=== PATIENT | female | born 1970 | race Caucasian/White ===

== ENCOUNTER 2025-01-30 23:29 | Inpatient (IN) | payer OTHER ==
[~2025-01-30] VITALS: Ht 154.9 cm; Wt 79.0 kg
[2025-01-31] VITALS (17 sets, daily range): BP systolic 125–159; BP diastolic 61–75; PULSE 81–116; RESP 16–20; TEMP 97.8–101; O2SAT 97–100
[2025-01-31 00:06] LABS: MEAN PLATELET VOLUME 7.3 FL (7.4-10.4); RED CELL DISTRIBUTION WIDTH 13.4 % (11.5-14.5)
--- NOTE | 2025-01-31 00:23 | Physician Documentation ---
History of Present Illness ~ Chief Complaint: Chest Pain Stated Complaint: CHEST PAINS M ALS Time Seen by MD: 00:13 HPI Patient presents to the emergency room for evaluation of left-sided chest pain, generalized malaise and vomiting. She endorses that three days ago she was feeling fine but did lay down for a small nap and ended up sleeping for 4 hours. Yesterday she began to feel significant fatigue and today she started vomiting. Subjective fever and chills. No sick contacts. She states she is just getting over COVID. Medication Reconciliation Allergies: Coded Allergies: Penicillins (Verified Allergy, Unknown, 01/31/25) Hives Review of Systems ROS All review of systems negative except as per HPI Physical Exam Vital Signs: Temperature: 100.4, Source: Oral, Heart Rate: 116, Respiratory Rate: 16, BP: 129/77, Pulse Oximetry: 100, Weight: 79.000 Oxygen Flow Rate: 3.0 Physical Exam General: Patient is awake, alert, oriented x4 in no acute distress Head: Normocephalic and atraumatic. Eyes: Conjunctival normal. EOMI. PERRL. ENT: Mucous membranes moist. Neck: Supple, trachea is midline. Chest: Clear to auscultation bilaterally without rales, rhonchi, or wheezes. There is no accessory muscle use or retractions. Cardiac: RRR without murmurs, gallops, or rubs. Abd: Soft, nondistended, nontender, with normoactive bowel sounds. No guarding, rebound, or rigidity. Progress Results/Orders Results/Orders Orders - JOSHUA SMITH MD Monitor (01/30/25 23:37) Saline Lock (01/30/25 23:37) Oxygen (01/30/25 23:37) Electrocardiogram (01/30/25 23:37) Chest,Single View (01/31/25 00:00) Covid19 Binax Poc Result Entry (01/31/25 00:20) Cult Urine + [address] (01/31/25 03:10) Ceftriaxone/R4y-Bliwcwij 1gm (Rocephin 1 (01/31/25 03:15) Page Hospitalist (01/31/25 03:14) Fill Out Med Reconciliation (01/31/25 03:14) Completed Orders - JOSHUA SMITH MD Cbc/Diff (01/30/25 23:37) BMP (01/30/25 23:37) PBNP (01/30/25 23:37) Hs Troponin I W Calculations (01/30/25 23:37) Hs Troponin I W Calculations (01/31/25 01:37) Hs Troponin I W Calculations (01/31/25 02:37) Chest,Single View (01/31/25 00:00) Normal Saline 1000ml (0.9% Sodium Chlori (01/31/25 00:25) Ketorolac Trometh 15mg/Ml Vial (Toradol (01/31/25 00:25) Ua W/Microscopic, Cult If Ind (01/31/25 02:40) Medications Received in ER Medications (Trade) Dose Ordered Sig/Ying Route PRN Reason Start Time Stop Time Status Last Admin Dose Admin Sodium Chloride 1,000 ml @ 1,000 mls/hr ONCE ONCE IV 01/31/25 00:25 01/31/25 01:24 DC 01/31/25 00:39 1,000 MLS/HR (Toradol injection) 15 mg ONCE ONCE IV 01/31/25 00:25 01/31/25 00:26 DC 01/31/25 00:39 15 MG Vital Signs 01/31/25 01/31/25 01/31/25 01/31/25 00:16 00:39 01:30 02:08 Temp 100.0 Pulse 116 92 Resp 16 16 16 16 B/P (MAP) 129/77 132/67 (88) Pulse Ox 100 98 O2 Flow Rate 3.0 2.0 01/31/25 01/31/25 01/31/25 02:09 02:14 03:01 Pulse 94 88 Resp 16 16 16 B/P (MAP) 130/65 (86) 134/66 (88) Pulse Ox 98 95 O2 Flow Rate 0 0 Laboratory Tests Test 01/30/25 23:50 01/31/25 01:43 01/31/25 02:40 01/31/25 02:41 White Blood Count 8.0 Red Blood Count 3.49 L Hemoglobin 10.6 L Hematocrit 29.9 L Mean Corpuscular Volume 85.6 Mean Corpuscular Hemoglobin 30.2 Mean Corpuscular Hemoglobin Concent 35.3 Red Cell Distribution Width 13.4 Platelet Count 237 Mean Platelet Volume 7.3 L Neutrophils (%) (Auto) 76.8 H Lymphocytes (%) (Auto) 14.3 L Monocytes (%) (Auto) 7.5 Eosinophils (%) (Auto) 0.9 Basophils (%) (Auto) 0.5 Neutrophils # (Auto) 6.2 Lymphocytes # (Auto) 1.1 Monocytes # (Auto) 0.6 Eosinophils # (Auto) 0.1 Basophils # (Auto) 0.0 CBC Comment Sodium Level 134 L Potassium Level 4.1 Chloride Level 99 Carbon Dioxide Level 23.7 L Anion Gap 11 Blood Urea Nitrogen 14 Creatinine 0.74 Estimated GFR/1.73 m2 82 BUN/Creatinine Ratio 18.9 Glucose Level 291 H Calcium Level 8.6 Troponin I High Sensitivity 10 32 Pro-B-Type Natriuretic Peptide 107 Albumin 3.0 L Chemistry Comments Troponin I High Sens Percent Delta 220 Troponin I Hi Sens Absolute Change 22 Urine Specimen Description Cln catch midstream Urine Color Yellow Urine Clarity Slightly cloudy Urine pH 5.5 Urine Specific [place] 1.015 Urine Protein Negative Urine Glucose (UA) 250 H Urine Ketones Negative Urine Occult Blood Small Urine Nitrite Negative Urine Bilirubin Negative Urine Urobilinogen 0.2 Urine Leukocyte Esterase Moderate H Urine RBC 0-2 Urine WBC 30-50 H Urine WBC Clumps Few Urine Squamous Epithelial Cells Moderate Urine Transitional Epithelial Cells Few Urine Bacteria 3+ Urine Mucus Few Urine Culture Indicated Indicated Volume Urine Centrifuged 10 ml Urine Comment SARS-CoV-2 Antigen (Rapid) Negative Test 01/31/25 02:47 Troponin I High Sensitivity 45 Troponin I High Sens Percent Delta 40 Troponin I Hi Sens Absolute Change 13 EKG/XRAY/CT/US/VASC/MRI EKG : Additional Comment EKG interpreted by myself shows time of 0 0 two, rate 113, sinus tachycardia, normal axis, no ST changes Medical Decision Making Findings Patient presents to the emergency room with chest pain and generalized symptoms. Differentials include but are not limited to ACS viral syndrome urinary tract infection sepsis therefore emergent labs ordered. Labs reassuring for no elevation of white blood cell count. Patient does have a urinary tract infection and Rocephin has been administered. Although patient does not have dangerously high troponins it does seem to be trending upwards and we will admit for further investigation in the light of patient's chest pain. Departure Admitted to Inpatient Unit: yes, to hospitalist Impression: Primary Impression: Chest pain Additional Impression: Vomiting Referrals: NO PRIMARY CARE PROVIDER (PCP) Signature Scribe Signature: No scribe Attestation: The note accurately reflects work and decisions made by me.Joshua Smith MD 01/31/25 03:19 JOSHUA SMITH MD Jan 31, 2025 00:23
[2025-01-31] MEDS: ketorolac trometh 15mg/ml vial 15 MG/ML ML IV ONE (00:39)
[2025-01-31] MEDS: normal saline 1000ml 1,000 ML IV ONE (00:39)
[2025-01-31 00:47] LABS: CREATININE 0.74 MG/DL (0.40-0.90); PRO BRAIN NATRIURETIC PEPTIDE 107 PG/ML (0-125); TOTAL CARBON DIOXIDE 23.7 MMOL/L (24-32); eCRCL 66 ML/MIN; eGFR 82 ML/MIN
--- NOTE | 2025-01-31 00:50 | RADIOLOGY REPORT ---
CHEST RADIOGRAPH Indication: CP Technique: Single frontal view of the chest was obtained COMPARISON: None FINDINGS: Lines and Tubes: None Lungs: Clear Pleura: No effusion. No pneumothorax. Cardiomediastinal contours: Unremarkable Bones: Unremarkable IMPRESSION: 1. No acute disease.
[2025-01-31 03:03] LABS: LEUKOCYTE ESTERASE ,URINE MODERATE (Neg); NITRITES, URINE NEGATIVE (Neg); OCCULT BLOOD,URINE SMALL (Neg)
[2025-01-31 03:04] LABS: UA COLLECTION TYPE CLN CATCH MIDSTREAM
[2025-01-31 03:09] LABS: MUCUS STRANDS FEW /LPF (Neg); SQUAMOUS EPITHELIAL CELL,UR MODERATE /LPF (FEW); WBC CLUMPS,URINE FEW /HPF (NEGATIVE)
[2025-01-31] MEDS: CefTRIAXone/D5W-Rocephin 1gm 50 ML IV ONE (03:21)
[2025-01-31] MEDS ORDERED: magnesium hydroxide 30ml (MOM) UD suspension PO PRN (04:10)
[2025-01-31] MEDS ORDERED: ondansetron/PF 4mg/2ml inj IV PRN (04:10)
[2025-01-31] MEDS ORDERED: HYDROcodone/acetaminophen 10/325mg tab PO PRN (04:10)
[2025-01-31] MEDS ORDERED: mag hydrox/Alum hydrox/simeth 30ml oral suspension PO PRN (04:10)
[2025-01-31] MEDS ORDERED: magnesium sulf-water 2g/50mL 50 ML IV PRN (04:10)
[2025-01-31] MEDS ORDERED: potassium Cl 40MEQ/1/2NS 520ml 520 ML IV PRN (04:10)
[2025-01-31] MEDS ORDERED: HYDROcodone/acetaminophen 5mg/325mg tablet PO PRN (04:10)
[2025-01-31] MEDS ORDERED: magnesium Cl slow-release 64mg tablet PO PRN (04:10)
[2025-01-31] MEDS ORDERED: magnesium sulf-water 4G/100mL 100 ML IV PRN (04:10)
[2025-01-31] MEDS ORDERED: potassium Cl 20 mEq SR tablet PO PRN ×2 (04:10)
[2025-01-31] MEDS ORDERED: LANTUS SQ (04:12)
[2025-01-31] MEDS ORDERED: DEXTROSE 15 GM of carb/4 tabs (each vial/BOTTLE has 4 tablets) PO PRN ×2 (04:15)
[2025-01-31] MEDS ORDERED: dextrose 50%-water 50ml dispensing syringe IV PRN ×2 (04:15)
[2025-01-31] MEDS ORDERED: glucagon, human recombinant 1mg kit SUBCUT PRN (04:15)
[2025-01-31] MEDS ORDERED: metoprolol tartrate 1mg/ml inj IV PRN (04:15)
[2025-01-31] MEDS ORDERED: aminophylline 250mg/10ml inj. IV PRN (04:15)
[2025-01-31] MEDS: PERFLUTREN PROTEIN-A MICROSPHR (Optison) 0.22 MG/ML 3ML VIAL IV ONE (04:25)
--- NOTE | 2025-01-31 04:51 | HISTORY AND PHYSICAL-Residence ---
History & Physical Providers to CC Resident Creating Document: PRASAD GARCIA RES ~ History of Present Illness Reason for Admit\Complaint: Chest pain History of Present Illness This is a 54-year-old female patient with a past medical history of type 2 diabetes mellitus who presented in the ER for chest pain. She was sleeping and woke up due to sudden onset sharp left side chest pain 6/10 in intensity without radiation, associated with nausea and dizziness. No alleviating or worsening factors reported, no improvement with nitroglycerin. She denies shortness or breath or productive cough but complained of chills and fever sensation. She was diagnosed with coccidioidomycosis in August 2024 when she was treated with amphotericin followed by maintenance with fluconazole daily. Patient has been followed by a crabbing machine operator and Infectious Disease, she states complete remission based on previous chest CT. Patient feels bloated but denies vomiting, diarrhea or epigastric pain. No urinary symptoms reported. Allergies: Coded Allergies: Penicillins (Verified Allergy, Unknown, 01/31/25) Hives Home Medications Home Medications Active Reported Lantus* (Insulin Glargine) 100 Unit/1 Ml Vial 30 Units SQ DAILY Past Medical History Past Medical History Type 2 diabetes mellitus on insulin Coccidioidomycosis in August 2024 Past Surgical History Surgical History Comment Left Achilles tendon repair Tonsillectomy Right shoulder surgery Past Social History Smoking: Non-Smoker Alcohol Use: Sober Drug Use: None Lives with: Alone Lives In: Home Occupation: employed ROS Constitutional: Reports: chills, fever, malaise, weakness Eyes: Denies: no symptoms reported, see HPI, pain, discharge, blurred vision, double vision, itching, photophobia, redness, tearing, other ENT: Denies: no symptoms reported, see HPI, ear pain, ear bleeding, ear discharge, hearing loss, ear ringing, nose pain, nose bleeding, nose congestion, nose discharge, throat pain, throat swelling, voice change, mouth pain, mouth bleeding, mouth swelling, other Respiratory: Reports: cough Cardiovascular: Reports: chest pain, lightheadedness Gastrointestinal: Reports: nausea Genitourinary: Denies: no symptoms reported, see HPI, burning, discharge, dysuria, frequency, flank pain, hematuria, incontinence, pain, decreased urine output, urgency, other Female Genitalia: Denies: no reported symptoms, see HPI, vaginal discharge, vaginal pain, pelvic pain, abnormal bleeding, dyspareunia, , other Neurological: Denies: no symptoms reported, see HPI, speech problem, headache, dizziness, fainting, tingling, left sided numbness, right sided numbness, left sided weakness, right sided weakness, problems walking, unable to move lower ext, unable to move upper ext, petit mal seizures, tonic-clonic seizures, cognitive dysfunction, other Musculoskeletal: Denies: no symptoms reported, see HPI, pain, swelling, back pain, gout, joint pain, joint swelling, muscle pain, muscle swelling, muscle stiffness, neck pain, other Integumentary: Denies: no symptoms reported, see HPI, rash, itching, lesions, lumps, bruise(s), wound(s), laceration(s), dryness, change in color, other Allergic/Immunologic: Denies: no symptoms reported, see HPI, hives, itching, frequent infections, difficulty healing, other Hematologic/Lymphatic: Denies: no symptoms reported, see HPI, anemia, blood clots, easy bleeding, easy bruising, swollen glands, other Endocrine: Denies: no symptoms reported, see HPI, excessive sweating, flushing, intolerance to cold, intolerance to heat, increased hunger, increased thrist, increased urine, unexplained weight gain, unexplained weight loss, other Psychiatric: Denies: no symptoms reported, see HPI, depression, anxiety, sleeplessness, hopeless, suicidal, hallucinations, other Exam Vitals: Vital Signs Date Time Temp Pulse Resp B/P (MAP) Pulse Ox O2 Delivery O2 Flow Rate FiO2 01/31/25 03:55 92 16 123/60 (81) 97 0 01/31/25 00:16 100.0 General: General: Awake and Alert, no acute distress. HEENT: Conjunctiva pink, Sclera clear, Mucus Membranes moist. Neck: Supple without masses and tenderness. Resp: Unlabored. Lungs clear to auscultation bilaterally. Heart: Regular Rate and rhythm, normal S1 and S2 without murmur, rub or gallop. Abdomen: Soft and non tender no organomegaly Extremities: No cyanosis,clubbing or edema. Skin: Warm and Dry. Diagnostic Data Last Recorded Lab Results: 01/30/25 2350 01/30/25 235 Advance Care Planning Advanced Care plannin - 30 Minutes (I have discussed advanced care directives. Patient requests full code status.) Additional Plan Assessment 54-year-old female patient admitted for chest pain evaluation and management. Chest pain, rule out ACS Heart score 4 points Sudden onset sharp chest pain at rest, without precipitating factors No shortness for breath but pain with deep inspiration Recent coccidioidomycosis infection but reports complete remission Troponins 10 - 32 - 45 BNP 107 WBC 8.0, procalcitonin 0.17, CRP 5.52 EKG: Heart rate 113 bpm, sinus rhythm, no ischemic changes noted Chest x-ray: No acute disease. Plan Ordered Lexiscan given female patient and diabetic which can explain atypical symptoms Ordered D-dimer, lipid panel and 4th troponin given upward trending Ordered echocardiogram Type 2 diabetes mellitus, insulin dependent Ordered A1c Continue glargine 30 units at bedtime Hyper/hypoglycemia protocol placed Uncomplicated UTI Positive leukocyte esterase Urine WBC 30-50 Started on ceftriaxone 1 g daily Mild hyponatremia Mild hypoalbuminemia Na 134, Albumin 3.0 Not clinically significant, current euvolemic Patient received 1000 mL of normal saline in the ER Recent coccidioidomycosis infection Patient had fever, weakness and cough in August 2024 Received amphotericin induction followed by daily fluconazole Reports to be in complete remission Ordered liver panel given chronic fluconazole use Code Status: Full code DVT prophylaxis: Enoxaparin Analgesia/sedation: Morphine/[place] Line/tube: PIV GI prophylaxis: Pantoprazole Nutrition: Regular diet Prognosis: Guarded Physical therapy: Consulted Disposition: Admit to PCU/telemetry. Addendum: Shortness of breath likely secondary to acute PE versus ACS CTA chest ordered to rule out PE Troponins up trending, Started on heparin drip. Contacted Dr. Duncan for cardiology recommendations. Recommendations appreciated #1 Neuro: - Monitor for delirium #2 CV: Suspected nonST-elevation myocardial infarction (NSTEMI). - ASA - Anticoagulation therapy - Statin for cholesterol management - Consult Cardiology for further management recommendations and possible intervention. #3 Pulm: - Encourage incentive spirometry (IS) use to prevent atelectasis. - Aim to keep O2 saturation >92% with supplemental oxygen as needed. #4 GI: - Advance diet as tolerated when cleared by primary care #5 Renal: - Monitor renal function for acute kidney injury - Replete electrolytes #6 ID: Urinary tract infection (UTI). - ceftiraxone #7 Endo: Type 2 Diabetes Mellitus. - Initiate insulin sliding scale to maintain serum glucose between 150-180 mg/dL. - Introduce long-acting insulin if persistent hyperglycemia or as per hospital protocol. #8 Heme/Onc: - Monitor for bleeding, especially in the context of antiplatelet and anticoagulant therapy for NSTEMI. - Prevent thromboembolic events; keep hemoglobin >7 g/dL and platelets >10,000/L. #9 PPx: - Provide chemical deep vein thrombosis (DVT) prophylaxis unless contraindicated. I saw this patient and completed a full visual exam via audio-visual HIPAA compliant technology. Date of Service: Jan 31, 2025 Billing Provider: MARCEL MUHAMMAD MD, LUCAS, RES Jan 31, 2025 04:51 FLORENCE YEPEZ, RES Jan 31, 2025 14:31 MARCEL MUHAMMAD MD Jan 31, 2025 14:45
[2025-01-31] MEDS ORDERED: FLUC100T25 PO (05:17)
[2025-01-31] MEDS ORDERED: INSU100C10 SQ (05:19)
--- NOTE | 2025-01-31 06:02 | ELECTROCARDIOGRAPH REPORT ---
[facility] Test Date: 2025-01-31 Test Time: 00:02:52 Pat Name: JESSICA NICHOLS Department: [facility]-ER Patient ID: [facility]-[id number] Room: [place] [id number] C Gender: F [employer]: : 1970 Requested By: WU CANTOR Order Number: [id number] Reading MD: Dr. Kelby De Leon Measurements Intervals [place] Rate: 113 P: 52 TX: 152 QRS: 21 QRSD: 80 T: 34 QT: 330 QTc: 453 Interpretive Statements Sinus tachycardia Probable left atrial enlargement Low voltage, precordial leads Baseline wander in lead(s) II,III,aVF,V1,V2,V3,V4,V5,V6 Electronically Signed On 02-08-2025 21:51:[address] Kelby De Leon Please click the below link to view image of tracing.
[2025-01-31] MEDS: INSULIN LISPRO 100 UNIT/ML INSULN.PEN MULTI-DOSE SQ SCH (07:00)
[2025-01-31 07:12] LABS: CHOL/HDL RATIO 6.0 (0.00-4.99); LDL CHOLESTEROL 109 MG/DL (50-100)
[2025-01-31] MEDS: docusate sod 100mg capsule PO SCH (08:00)
[2025-01-31] MEDS: K and/or MAG REPLACEMENT MC SCH (08:00)
[2025-01-31] MEDS: enoxaparin 40mg/0.4ml syringe SUBCUT SCH (08:03)
[2025-01-31] MEDS: regadenoson 0.4mg/5ml syringe IV PRN (09:16)
--- NOTE | 2025-01-31 10:50 | RADIOLOGY REPORT ---
HISTORY: Chest pain TECHNIQUE: At peak stress, 33.7 mCi of sestamibi was administered intravenously. Soon thereafter, gated SPECT imaging of the heart was performed with the patient in the supine position. At rest, 8.4 mCi of sestamibi was administered intravenously. Soon thereafter, gated SPECT imaging of the heart was performed with the patient in the supine position. FINDINGS: The left ventricular myocardium demonstrates uniform radiotracer distribution, without perfusion defect. The left ventricular cavity is normal in size. Calculated LVEF is 41 %. No segmental wall motion abnormality. IMPRESSION: NORMAL MYOCARDIAL PERFUSION EXAM. LVEF 41 %.
[2025-01-31] MEDS: metoprolol succinate 25mg (24-HOUR) SR. Tablet PO SCH (11:10)
[2025-01-31] MEDS: aspirin 81mg, enteric-coated 1 TAB TABLET.DR PO SCH (13:02)
[2025-01-31] MEDS: HEPARIN DRIP-CARDIAC**PHARMACIST-TO-DOSE IV ONE ×2 (13:43→17:29)
[2025-01-31] MEDS ORDERED: heparin 10,000 units/1 ML INJ IV PRN ×2 (13:45→17:25)
[2025-01-31] MEDS: MESSAGE TO NURSING IV ONE ×2 (14:05→17:35)
[2025-01-31] MEDS: heparin 25,000 UNIT/250ml bag 250 ML IV PRN ×2 (15:03→19:16)
[2025-01-31] MEDS: heparin 10,000 units/1 ML INJ IV ONE (15:10)
--- NOTE | 2025-01-31 15:48 | RADIOLOGY REPORT ---
Indication: sob/cp Technique: CT axial images of the abdomen and pelvis are obtained with intravenous contrast. Coronal and sagittal reformats were obtained. Radiation Dose Information: CTDI volume is 19 mGy. Dose-length product is 648 mGy*cm Comparison: None FINDINGS: No filling defect within the main left right pulmonary arteries. Segmental and subsegmental arteries suboptimally characterized, no definitive defects identified. The trachea is patent. No pneumothorax. No pulmonary airspace consolidation. Left upper lobe tree-in-bud nodularity consolidation with nodules up to 6 mm. Heart size at the upper limits of normal. Coronary artery calcification disease. Prevascular lymph nodes measuring up to 9 mm. 13 mm left paratracheal lymph node. No supraclavicular or axillary lymphadenopathy. Hepatic steatosis. Left hepatic lobe hypervascular lesion measuring 8 mm. 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 No aggressive osseous process. Moderate thoracic degenerative disc disease. IMPRESSION: No evidence for large pulmonary embolism. Left upper lobe tree-in-bud nodularity consolidation with nodules up to 6 mm, likely secondary atypical infection, bronchiolitis. Follow-up to resolution. Recommend follow-up per fleischner society criteria guidelines to exclude any type of malignant process. Prominent mediastinal lymph nodes as described. Coronary artery calcification disease. Hepatic steatosis. 8 mm left hepatic lobe hypervascular lesion which could represent flash hemangioma however other lesions not ruled out. Recommend multiphasic MRI abdomen with and without contrast to characterize. Other findings as described
[2025-01-31] MEDS: HEPARIN DRIP INITAL BOLUS --- DO NOT GIVE/ORDER MC ONE (17:31)
--- NOTE | 2025-01-31 17:34 | ELECTROCARDIOGRAPH REPORT ---
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 Jake Fisher Measurements Intervals [place] Rate: 90 P: 55 MS: 172 QRS: 46 QRSD: 81 T: 36 QT: 365 QTc: 447 Interpretive Statements Sinus rhythm Electronically Signed On 02-01-2025 6:47:[address] Jake Fisher Please click the below link to view image of tracing.
--- NOTE | 2025-01-31 20:38 | CONSULTATION REPORT ---
Cardiac Consultation Report Providers to CC ~ Subjective Subjective Cardiology consultation: I came to see the patient as I have received multiple phone calls about her today. I was initially called by a residency Service physician and told that person that in my opinion the patient has noncardiac chest pain and has a normal nuclear scan and does not need to be treated as a guideline directed non ST elevated WI. Discontinue the heparin. Subsequently I got a call at the [facility] by the nursing staff with charge nurse once again asking me the same question and telling me that the resident called them and said that Dr. Reyes has to discontinue the heparin and I gave a phone order to discontinue the heparin. As I was now concerned about what is actually going on with the patient I came to see the patient and low and behold she is on heparin. In talking to her nurse Filiberto Torres RN a resident called him back and said that Dr. Morel wants the patient on heparin. History taken from patient chart reviewed. 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 She came to the hospital nausea vomiting fever malaise. Noncardiac chest pain. The chest pain appeared to be pleuritic. Troponins have remained the same approximately 0.1-0.15. She is chronically anemic hemoglobin 10.6 Nuclear scan was reported as normal with an ejection fraction of 41%. A CT angiogram which reported coronary calcification. Left upper lobe tree-in-bud nodularity. Consolidation. Left hepatic poor lobe hypervascular lesion hepatosteatosis prominent mediastinal lymph nodes. Echocardiogram was reviewed at in the long axis view it shows small pericardial effusion with hyperdynamic left ventricle. First or tells me that due to her risk factors she has been having yearly cardiac evaluations. Objective Vitals Vital Signs Date Time Temp Pulse Resp B/P (MAP) Pulse Ox O2 Delivery O2 Flow Rate FiO2 01/31/25 18:30 92 01/31/25 15:00 97.9 18 131/62 (85) 98 Room Air 01/31/25 09:00 0.0 Lab Results: 01/30/25 2350 01/31/25 0622 Objective Carotid no bruit chest clear to auscultation percussion. No pleural rub no pericardial rub. Grade 1 systolic murmur left sternal border. Abdomen mildly tender to palpation bowel sounds present. Peripheral pulses plus one interstitial nonpitting edema. Patient has a protuberant abdomen. Coagulation Studies Laboratory Tests Test 01/31/25 06:22 01/31/25 15:04 D-Dimer 0.63 MG/L FEU (0-0.50) H D-Dimer Comment APTT (Heparin Protocol) 29 SECONDS (45-60) L Coagulation Comments Other Results Electrocardiogram minor nonspecific ST changes. Problem\Assessment\Plan Additional Plan Impression 1. This is not acute coronary syndrome no need for intravenous heparin. 2. Patient has unspecified febrile illness clear if left upper lobe lung changes are chronic or active. Patient thinks they are chronic. 3. Asymptomatic atherosclerotic heart disease with coronary calcification. She is asymptomatic with all activities. 4. Other findings as listed. Recommendation: Check a CRP and an ESR. Patient does have pericardial effusion and would treated with nonsteroidal anti- inflammatories. If patient is ambulatory and asymptomatic discharge for follow up with her usual physicians shows would like to go back to the [place] area where she is well known and would like to have any further investigations performed there if possible As there seems to be a difference of opinion with respect to my recommendation I will sign off. Please consult another outreach and education social worker in a.m.. TIFFANY REYES MD Jan 31, 2025 20:38
[2025-01-31] MEDS: CefTRIAXone/D5W-Rocephin 1gm 50 ML IV SCH (21:13)
[2025-01-31] MEDS: insulin glargine (Lantus) pen - multi-dose SQ SCH (21:24)
[2025-01-31] MEDS: azithromycin/NS 500mg/250ml 250 ML IV SCH (22:20)
[2025-02-01 02:00] VITALS: BP 122/55; PULSE 83; RESP 14; TEMP 97.4; O2SAT 97
[2025-02-01 05:05] LABS: MEAN PLATELET VOLUME 7.4 FL (7.4-10.4); RED CELL DISTRIBUTION WIDTH 13.5 % (11.5-14.5)
[2025-02-01 05:45] LABS: CREATININE 0.63 MG/DL (0.40-0.90); TOTAL CARBON DIOXIDE 25.0 MMOL/L (24-32); eCRCL 78 ML/MIN; eGFR > 90 ML/MIN
[2025-02-01 06:00] VITALS: BP 127/65; PULSE 82; RESP 13; TEMP 97.3; O2SAT 97
[2025-02-01 07:22] VITALS: RESP 16; O2SAT 97
[2025-02-01] MEDS ORDERED: CefTRIAXone/D5W-Rocephin 1gm 50 ML IV SCH (08:00)
[2025-02-01 11:00] VITALS: BP 142/58; PULSE 89; RESP 16; TEMP 97.3; O2SAT 97
[2025-02-01] MEDS ORDERED: AZIT500T PO (12:17)
--- NOTE | 2025-02-01 20:24 | DISCHARGE SUMMARY-Residence ---
Discharge Summary Providers to CC Resident Creating Document: FLORENCE YEPEZ, RES ~ Discharge Summary Admission Diagnosis: Chest pain, rule out ACS Hospital Course DATE OF ADMISSION: 01/31/2025 DATE OF DISCHARGE: 02/01/2025 Discharge Diagnosis\Comment: Unstable angina Type 2 diabetes mellitus, insulin dependent, poorly controlled Asymptomatic E coli bacteriuria Mild hyponatremia Mild protein calorie malnutrition Recent coccidioidomycosis infection Operations\Procedures: None Consultants: Dr. Duncan Complications: None Condition on DC: Stable New Medications: Azithromycin (Zithromax) 500 Mg Tablet 1 TAB PO DAILY for 3 Days, #3 TAB Continued Medications: Fluconazole (Fluconazole) 100 Mg Tablet 4 TAB PO DAILY for 7 Days, #7 TAB Insulin Glargine,Hum.rec.anlog* (Lantus*) 100 Unit/1 Ml Vial 30 UNITS SQ DAILY Insulin Lispro (Humalog) 100 Unit/Ml Cartridge 1 UNITS SQ AC for 28 Days, #60 UNIT Discharge Summary: History of present illness: This is a 54-year-old female with a history of type 2 diabetes mellitus, hyperlipidemia was admitted for evaluation of acute coronary syndrome. Patient states that she experienced sudden onset of left-sided sharp pain 6/10 in intensity with radiation to jaw with a associated nausea and dizziness which was partially improved with nitroglycerin and Toradol shot. She has slight shortness of breath which is chronic secondary to coccidioidomycosis diagnosed in August. 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 She has previously finished amphotericin for six weeks. She denies any burning in the urine despite having leukocytes in UA and urine cultures being positive for E coli. Hospital course: Patient was admitted with chest pain and she received aspirin 324 mg and nitroglycerin by the EMS. Lipid panel showed elevated cholesterol, LDL and A1c was 9.8. Patient diabetes was managed with 30 units Lantus and lispro sliding scale insulin for her diabetes. Patient was continued on aspirin, statin, beta- sendy, Protonix for suspected ACS. CTA chest ruled out pulmonary embolism but showed atypical infection suggestive of bronchiolitis. She was initiated on antibiotics ceftriaxone and azithromycin, inhalers. EKG showed a sinus rhythm with heart rate of 113, pro BNP was 107, troponins were slightly up trending from 10-30 2-40 5-1 10-180 however later down trended to 100. Other labs were unremarkable. Lexiscan was done which was negative. Echocardiogram did not show any systolic wall motion abnormalities and a had a normal ejection fraction . Patient recovered earlier than expected duration of hospital stay, hence was discharged early. Physical examination at discharge: General: Awake and Alert, no acute distress. HEENT: Conjunctiva pink, Sclera clear, Mucus Membranes moist. Neck: Supple without masses and tenderness. Resp: Unlabored. Lungs clear to auscultation bilaterally. Heart: Regular Rate and rhythm, normal S1 and S2 without murmur, rub or gallop. Abdomen: Soft and non tender no organomegaly Extremities: No cyanosis,clubbing or edema. Skin: Warm and Dry. Vital Signs Date Time Temp Pulse Resp B/P (MAP) Pulse Ox O2 Delivery O2 Flow Rate FiO2 02/01/25 11:00 97.3 89 16 142/58 (86) 97 Room Air 02/01/25 07:22 0.0 Laboratory Tests Test 01/30/25 23:50 01/31/25 01:43 01/31/25 02:40 01/31/25 02:41 White Blood Count 8.0 X10'3 Red Blood Count 3.49 X10'6 Hemoglobin 10.6 g/dl Hematocrit 29.9 % Mean Corpuscular Volume 85.6 FL Mean Corpuscular Hemoglobin 30.2 PG Mean Corpuscular Hemoglobin Concent 35.3 g/dL Red Cell Distribution Width 13.4 % Platelet Count 237 X10'3 Mean Platelet Volume 7.3 FL Neutrophils (%) (Auto) 76.8 % Lymphocytes (%) (Auto) 14.3 % Monocytes (%) (Auto) 7.5 % Eosinophils (%) (Auto) 0.9 % Basophils (%) (Auto) 0.5 % Neutrophils # (Auto) 6.2 X10'3 Lymphocytes # (Auto) 1.1 X10'3 Monocytes # (Auto) 0.6 X10'3 Eosinophils # (Auto) 0.1 X10'3 Basophils # (Auto) 0.0 X10'3 CBC Comment Sodium Level 134 MMOL/L Potassium Level 4.1 MMOL/L Chloride Level 99 MMOL/L Carbon Dioxide Level 23.7 MMOL/L Anion Gap 11 Blood Urea Nitrogen 14 MG/DL Creatinine 0.74 MG/DL Estimated GFR/1.73 m2 82 ML/MIN BUN/Creatinine Ratio 18.9 Glucose Level 291 MG/DL Hemoglobin A1c 9.3 % Calcium Level 8.6 MG/DL Troponin I High Sensitivity 10 ng/L 32 ng/L Pro-B-Type Natriuretic Peptide 107 PG/ML Albumin 3.0 G/DL Chemistry Comments Troponin I High Sens Percent Delta 220 % Troponin I Hi Sens Absolute Change 22 ng/L C-Reactive Protein 5.52 MG/DL Procalcitonin 0.17 NG/ML Urine Specimen Description Cln catch midstream Urine Color Yellow Urine Clarity Slightly cloudy Urine pH 5.5 Urine Specific Ivins 1.015 Urine Protein Negative mg/dl Urine Glucose (UA) 250 mg/dl Urine Ketones Negative mg/dl Urine Occult Blood Small Urine Nitrite Negative Urine Bilirubin Negative Urine Urobilinogen 0.2 E.U/dL Urine Leukocyte Esterase Moderate Urine RBC 0-2 /HPF Urine WBC 30-50 /HPF Urine WBC Clumps Few /HPF Urine Squamous Epithelial Cells Moderate /LPF Urine Transitional Epithelial Cells Few /HPF Urine Bacteria 3+ /HPF Urine Mucus Few /LPF Urine Culture Indicated Indicated Volume Urine Centrifuged 10 ml Urine Comment SARS-CoV-2 Antigen (Rapid) Negative Test 01/31/25 02:47 01/31/25 04:18 01/31/25 06:22 01/31/25 08:08 Troponin I High Sensitivity 45 ng/L 89 ng/L Troponin I High Sens Percent Delta 40 % 97 % Troponin I Hi Sens Absolute Change 13 ng/L 44 ng/L Glucometer 264 mg/dl 208 mg/dl D-Dimer 0.63 MG/L FEU D-Dimer Comment Potassium Level 3.9 MMOL/L Hemoglobin A1c 9.8 % Magnesium Level 1.8 MG/DL Total Bilirubin 0.3 MG/DL Direct Bilirubin 0.1 MG/DL Aspartate Amino Transf (AST/SGOT) 12 U/L Alanine Aminotransferase (ALT/SGPT) 14 U/L Alkaline Phosphatase 119 IU/L Total Protein 6.6 G/DL Albumin 2.8 G/DL Globulin 3.8 G/DL Albumin/Globulin Ratio 0.7 Triglycerides Level 348 MG/DL Cholesterol Level 216 MG/DL LDL Cholesterol 109 MG/DL HDL Cholesterol 36 MG/DL Cholesterol/HDL Ratio 6.0 Chemistry Comments Test 01/31/25 12:02 01/31/25 12:27 01/31/25 15:04 01/31/25 15:49 Troponin I High Sensitivity 113 ng/L 184 ng/L Troponin I High Sens Percent Delta 26 % 62 % Troponin I Hi Sens Absolute Change 24 ng/L 71 ng/L Glucometer 202 mg/dl APTT (Heparin Protocol) 29 SECONDS Coagulation Comments Test 01/31/25 18:05 01/31/25 18:22 01/31/25 20:36 01/31/25 21:03 Troponin I High Sensitivity 193 ng/L Troponin I High Sens Percent Delta 4 % Troponin I Hi Sens Absolute Change 9 ng/L Glucometer 247 mg/dl 280 mg/dl APTT (Heparin Protocol) 32 SECONDS Coagulation Comments Test 02/01/25 04:45 02/01/25 07:09 02/01/25 12:10 White Blood Count 4.1 X10'3 Red Blood Count 4.46 X10'6 Hemoglobin 13.2 g/dl Hematocrit 38.4 % Mean Corpuscular Volume 86.1 FL Mean Corpuscular Hemoglobin 29.7 PG Mean Corpuscular Hemoglobin Concent 34.4 g/dL Red Cell Distribution Width 13.5 % Platelet Count 196 X10'3 Mean Platelet Volume 7.4 FL Hematology Comments Sodium Level 138 MMOL/L Potassium Level 4.1 MMOL/L Chloride Level 102 MMOL/L Carbon Dioxide Level 25.0 MMOL/L Anion Gap 11 Blood Urea Nitrogen 15 MG/DL Creatinine 0.63 MG/DL Estimated GFR/1.73 m2 > 90 ML/MIN BUN/Creatinine Ratio 23.8 Glucose Level 299 MG/DL Calcium Level 9.3 MG/DL Magnesium Level 2.1 MG/DL Troponin I High Sensitivity 107 ng/L Troponin I High Sens Percent Delta 44 % Troponin I Hi Sens Absolute Change -86 ng/L Albumin 3.0 G/DL Chemistry Comments Glucometer 288 mg/dl 261 mg/dl Imaging: Echocardiogram: LEFT VENTRICLE Normal LV size and function. Mild concentric hypertrophy. LVEF is 60%. RIGHT VENTRICLE RV appears normal in size and contractility. RVSP is estimated at 33 mmHG. ATRIA Left atrium is mildly dilated. AORTIC VALVE Trileaflet AV appears sclerotic without stenosis. No insufficiency. MITRAL VALVE MV is thickened with mild annular thickening and no stenosis. Mild mitral regurgitation. TRICUSPID VALVE The tricuspid valve is normal in structure. Trace tricuspid regurgitation. PULMONIC VALVE The pulmonary valve is normal in structure. Trace pulmonic insufficiency. GREAT VESSELS The aortic root is normal in size. The ascending aorta is normal in size. The IVC is normal in size and collapses >50% with inspiration. PERICARDIUM There is no pericardial effusion. Lexiscan: NORMAL MYOCARDIAL PERFUSION EXAM. LVEF 41 %. CTA chest: No evidence for large pulmonary embolism. Left upper lobe tree-in-bud nodularity consolidation with nodules up to 6 mm, likely secondary atypical infection, bronchiolitis. Follow-up to resolution. Recommend follow-up per fleischner society criteria guidelines to exclude any type of malignant process. Prominent mediastinal lymph nodes as described. Coronary artery calcification disease. Hepatic steatosis. 8 mm left hepatic lobe hypervascular lesion which could represent flash hemangioma however other lesions not ruled out. Recommend multiphasic MRI abdomen with and without contrast to characterize. Discharge recommendations: Establish care with a saturation equipment operator if you have recurrent chest pain. Follow up with the PCP in a week. Follow up with the frit coater and Infectious diseases doctors about finishing the course for valley fever with fluconazole. We have prescribed a three day course of azithromycin for atypical lung infection. Take as prescribed. Continue to monitor your blood sugars frequently and take lispro insulin according to the sliding scale as needed. Return to the ED if you have worsening shortness of breath or chest pain. *Problems/Diagnosis: (1) Chest pain Status: Acute Total Time Spent on D/C: > 30 Minutes Date of Service: Feb 01, 2025 Billing Provider: ANTIONETTE KERR MD, DEEPIKA BANDI, RES Feb 01, 2025 20:24
--- NOTE | 2025-02-02 19:08 | CARDIOLOGY REPORT ---
APPROVED REPORT EXAM: Comprehensive 2D, Doppler, and color-flow Echocardiogram. 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 2.57 cm IVC 19.32 mm FS (%) 30.7 % SV 51.8 ml CO 5.2 L/min M-Mode Dimensions MV EPSS 0.8 (<0.5cm) Aortic Valve AoV Peak Richi. 209.5 cm/s AoV VTI 43.1 cm AO Peak GR. 17.6 mmHg AO Mean GR. 10 mmHg LVOT VTI 33.43 cm LVOT Peak Richi. 145.4 cm/s MARA(VTI)/BSA 2.37 cm2/m2 MARA (VTI) 2.37 cm2 Mitral Valve MV E Velocity 102.4 cm/s MV Peak Gr. 9 mmHg MV DECEL TIME 140 ms MV A Velocity 115.0 cm/s MV PHT 68 ms E/A Ratio 0.9 MVA (PHT) 3.24 cm2 MV VMax 147.4 cm/s TDI Medial E' P. V 8.87 cm/s E/Medial E' 11.5 Tricuspid Valve TR P. Velocity 242 cm/s RAP ESTIMATE 10 mmHg TR Peak Gr. 23 mmHg RVSP 33 mmHg Pulmonary Vein S1 Velocity 70.1 cm/s D2 Velocity 37.5 cm/s PVa Velocity 31.3 cm/s PVa Duration 84 msec LEFT VENTRICLE Normal LV size and function. Mild concentric hypertrophy. LVEF is 60%. RIGHT VENTRICLE RV appears normal in size and contractility. RVSP is estimated at 33 mmHG. ATRIA Left atrium is mildly dilated. AORTIC VALVE Trileaflet AV appears sclerotic without stenosis. No insufficiency. MITRAL VALVE MV is thickened with mild annular thickening and no stenosis. Mild mitral regurgitation. TRICUSPID VALVE The tricuspid valve is normal in structure. Trace tricuspid regurgitation. PULMONIC VALVE The pulmonary valve is normal in structure. Trace pulmonic insufficiency. GREAT VESSELS The aortic root is normal in size. The ascending aorta is normal in size. The IVC is normal in size and collapses >50% with inspiration. PERICARDIUM There is no pericardial effusion. Other Information Study Quality: Adequate Conclusion Normal LV size and function. Mild concentric hypertrophy. LVEF is 60%. RV appears normal in size and contractility. RVSP is estimated at 33 mmHG. Left atrium is mildly dilated. Trileaflet AV appears sclerotic without stenosis. No insufficiency. MV is thickened with mild annular thickening and no stenosis. Mild mitral regurgitation. The tricuspid valve is normal in structure. Trace tricuspid regurgitation. The pulmonary valve is normal in structure. Trace pulmonic insufficiency. There is no pericardial effusion.
== END 2025-02-01 14:45 | disposition home or self-care (01) | DRG 638 ==
LOC: ER 23:30 → PCU 3S 01-31 03:41
PROVIDERS: ADMIT Internal Medicine Pulmonary Disease; ATTEND Family Medicine
PROC: 4A02XM4 Measurement of Cardiac Total Activity, External Approach (ICD-10-PCS; principal; 2025-01-31)
PROC: 3E033HZ Introduction of Radioactive Substance into Peripheral Vein, Percutaneous Approach (ICD-10-PCS; 2025-01-31)
PROC: B32T1ZZ Computerized Tomography (CT Scan) of Left Pulmonary Artery using Low Osmolar Contrast (ICD-10-PCS; 2025-01-31)
PROC: B3201ZZ Computerized Tomography (CT Scan) of Thoracic Aorta using Low Osmolar Contrast (ICD-10-PCS; 2025-01-31)
PROC: B32S1ZZ Computerized Tomography (CT Scan) of Right Pulmonary Artery using Low Osmolar Contrast (ICD-10-PCS; 2025-01-31)
DX: E11.65 Type 2 diabetes mellitus with hyperglycemia (principal); E44.1 Mild protein-calorie malnutrition; E87.1 Hypo-osmolality and hyponatremia; I20.0 Unstable angina; R82.71 Bacteriuria; R07.89 Other chest pain; E88.09 Other disorders of plasma-protein metabolism, not elsewhere classified; D64.9 Anemia, unspecified; Z68.32 Body mass index [BMI] 32.0-32.9, adult; Z88.0 Allergy status to penicillin
CPT/HCPCS: 36415; 71045; 71275; 78452; 80048; 80061; 80076; 81001; 82948; 83036; 83735; 83880; 84132; 84145; 84484; 85025; 85027; 85379; 85730; 86140; 87040; 87077; 87081; 87088; 87186; 87811; 93005; 93017; 93306; 99285; A9500; G0378; J0456; J0696; J1644; J1650; J1815; J1885; J2470; J2785; J7030; J7040; J7512; Q9967